=== PATIENT | female | born 1960 | race Hispanic/Latino ===

== ENCOUNTER 2017-05-18 17:06 | Emergency (ER) | payer SELFPAY ==
[2017-05-18 18:30] LABS: #Basophils 0.1 thou/uL (0.0-0.2); #Eosinphils 0.2 thou/uL (0.0-0.7); #Lymphocytes 4.7 thou/uL (1.20-3.40); #Monocytes 1.6 thou/uL (0.11-0.59); #Neutrophils 10.8 thou/uL (1.40-6.50); %Basophils 0.7 % (0.0-1.0); %Eosinophils 0.9 % (0.0-10.0); %Lymphocytes 27.1 % (21.0-51.0); %Monocytes 9.2 % (0.0-10.0); %Neutrophils 62.2 % (42.0-75.0); Hemoglobin 17.8 g/dL (12.0-16.0); Mean Corpuscular HGB CONC 33.5 g/dL (32.0-36.0); Mean Corpuscular Hemoglobin 34.1 pg (27.0-31.0); Mean Platelet Volume 7.7 fL (7.4-10.4); Platelet Count 267 thou/uL (130-400); RBC Distribution Width 12.4 % (11.5-14.5); Red Blood Cell (RBC) Count 5.22 mill/uL (4.20-5.40); White Blood Cell (WBC) Count 17.4 thou/uL (4.8-10.8)
[2017-05-18 18:55] LABS: ALT (SGPT) 14 U/L (8-55); AST (SGOT) 14 U/L (5-34); Albumin 4.3 g/dL (3.5-5.0); Alkaline Phosphatase 74 U/L (40-150); Anion Gap 16 mmol/L (10-20); BUN (Urea Nitrogen) 28 mg/dL (9.8-20.1); Bilirubin, Total 0.3 mg/dL (0.2-1.2); CK (CPK) 79 U/L (29-168); Calc. Creatinine Clearance 0 mL/min (70-130); Calcium 10.8 mg/dL (7.8-10.44); Carbon Dioxide 29 mmol/L (22-29); Chloride 99 mmol/L (98-107); Estimated GFR-MDRD 65; Globulin 3.8 g/dL (2.4-3.5); Glucose 155 mg/dL (70-105); Lipase 40 U/L (8-78); Potassium 4.5 mmol/L (3.5-5.1); Protein, Total 8.1 g/dL (6.0-8.3); Sodium 139 mmol/L (136-145)
[2017-05-18 18:59] LABS: CKMB 2.1 ng/mL (0-6.6); Troponin I Less than 0.010 ng/mL (< 0.028)
[2017-05-18 20:07] LABS: Bilirubin Negative (Negative); Blood, Urine Negative (Negative); Clarity CLEAR (Clear); Glucose, Urine (Dipstick) Negative (Negative); Leukocyte Small (Negative); Nitrite Negative (Negative); Protein, Urine (Dipstick) Negative (Neg-Trace); Specific Gravity, Urine 1.022 (1.002-1.036)
--- NOTE | 2017-05-18 20:10 | RAD ---
PA AND LATERAL VIEWS OF THE CHEST: 05/18/17 HISTORY: Chest pain. Hypertension. FINDINGS: The heart size is normal. The lungs are well expanded without focal areas of consolidation, pneumotho rax or pleural effusions. There are degenerative changes in the spine. IMPRESSION: No radiographic evidence of acute cardiopulmonary process. POS: [facility]
[2017-05-18 22:59] LABS: Troponin I Less than 0.010 ng/mL (< 0.028)
--- NOTE | 2017-06-19 21:25 | EKG ---
Test Reason : Blood Pressure : / mmHG Vent. Rate : 095 BPM Atrial Rate : 095 BPM P-R Int : 148 ms QRS Dur : 106 ms QT Int : 376 ms P-R-T Axes : 065 222 040 degrees QTc Int : 472 ms Normal sinus rhythm Possible Left atrial enlargement Inferior infarct , age undetermined Anterolateral infarct , age undetermined Abnormal ECG Confirmed by CAITLIN DUDLEY M.D. ([id number]), editor newspaper MERLY CABRALES ([id number]) on 06/19/2017 9:25:39 PM Referred By: Confirmed By:CAITLIN DUDLEY M.D.
== END 2017-05-18 23:11 | disposition home or self-care (01) ==
LOC: ERS 17:06
DX: N39.0 Urinary tract infection, site not specified (principal); R07.9 Chest pain, unspecified; E78.5 Hyperlipidemia, unspecified; I10 Essential (primary) hypertension; J45.909 Unspecified asthma, uncomplicated; D45 Polycythemia vera; F32.9 Major depressive disorder, single episode, unspecified; F17.210 Nicotine dependence, cigarettes, uncomplicated; Z79.899 Other long term (current) drug therapy
CPT/HCPCS: 71046; 80053; 81003; 81015; 82553; 83690; 83880; 84484; 85025; 87077; 87086; 87186; 87804; 93005; 96360; 96361

== ENCOUNTER 2017-06-04 12:22 | Outpatient (CLI) | payer SELFPAY | END 2017-06-04 12:23 | disposition home or self-care (01) | LOC: BICMAMMO 12:22 | PROVIDERS: ATTEND Physician Assistant Medical | DX: Z12.31 Encounter for screening mammogram for malignant neoplasm of breast (principal); R92.1 Mammographic calcification found on diagnostic imaging of breast | CPT/HCPCS: 77063; 77067 ==

== ENCOUNTER 2018-09-03 18:29 | Emergency (ER) | payer SELFPAY ==
--- NOTE | 2018-09-03 19:10 | RAD ---
PORTABLE CHEST ONE VIEW: 09/03/18 at 6:56 p.m. HISTORY: Cough, congestion, sore throat. FINDINGS: Comparison made with the exam of 11/16/17. The heart size is borderline. The lungs are expanded without focal areas of consolidation, pneumothor aces, cyrus pulmonary edema or pleural effusions. IMPRESSION: No acute process. POS: [facility]
[2018-09-03] MEDS ORDERED: Albuterol Sulfate 2.5 mg/3 ml Neb ONE (20:49)
[2018-09-03] MEDS ORDERED: predniSONE 20 MG TAB ONE (21:16)
== END 2018-09-03 22:10 | disposition home or self-care (01) ==
LOC: ERS 18:29
DX: J20.9 Acute bronchitis, unspecified (principal); E78.5 Hyperlipidemia, unspecified; I10 Essential (primary) hypertension; J44.9 Chronic obstructive pulmonary disease, unspecified; F41.9 Anxiety disorder, unspecified; F32.9 Major depressive disorder, single episode, unspecified; Z71.6 Tobacco abuse counseling; F17.210 Nicotine dependence, cigarettes, uncomplicated
CPT/HCPCS: 71045; 87804; 94640; 99406; J7512; J7611

== ENCOUNTER 2019-02-07 16:29 | Emergency (ER) | payer SELFPAY ==
[2019-02-07 17:08] LABS: #Basophils 0.1 thou/uL (0.0-0.2); #Eosinphils 0.1 thou/uL (0.0-0.7); #Monocytes 1.2 thou/uL (0.11-0.59); #Neutrophils 9.6 thou/uL (1.40-6.50); %Basophils 0.9 % (0.0-1.0); %Eosinophils 0.7 % (0.0-10.0); %Lymphocytes 21.4 % (21.0-51.0); %Monocytes 8.3 % (0.0-10.0); %Neutrophils 68.7 % (42.0-75.0); Hemoglobin 18.2 g/dL (12.0-16.0); Mean Corpuscular HGB CONC 32.7 g/dL (32.0-36.0); Mean Corpuscular Hemoglobin 32.5 pg (27.0-31.0); Mean Corpuscular Volume 99.5 fL (78.0-98.0); Mean Platelet Volume 8.3 fL (7.4-10.4); Platelet Count 176 thou/uL (130-400); RBC Distribution Width 13.1 % (11.5-14.5); White Blood Cell (WBC) Count 13.9 thou/uL (4.8-10.8)
[2019-02-07 17:24] LABS: ALT (SGPT) 13 U/L (8-55); AST (SGOT) 14 U/L (5-34); Albumin 4.5 g/dL (3.5-5.0); Alkaline Phosphatase 69 U/L (40-110); Anion Gap 14 mmol/L (10-20); BUN (Urea Nitrogen) 19 mg/dL (9.8-20.1); Bilirubin, Total 0.4 mg/dL (0.2-1.2); Calc. Creatinine Clearance 0 mL/min (70-130); Calcium 10.4 mg/dL (7.8-10.44); Carbon Dioxide 30 mmol/L (22-29); Chloride 101 mmol/L (98-107); Estimated GFR-MDRD 66; Globulin 3.6 g/dL (2.4-3.5); Glucose 141 mg/dL (70-105); Potassium 3.7 mmol/L (3.5-5.1); Protein, Total 8.1 g/dL (6.0-8.3); Sodium 141 mmol/L (136-145)
[2019-02-07] MEDS ORDERED: Clindamycin/D5W 600 mg/50 ml Premix Bag ONE (18:06)
--- NOTE | 2019-02-07 18:37 | ULT ---
ULTRASOUND DOPPLER DUPLEX VENOUS RIGHT LOWER EXTREMITY: DATE: 02/07/2019 HISTORY: 58-year-old female with right lower extremity pain, swelling, and erythema. TECHNIQUE: Grayscale, color-flow, and spectral analysis, of major veins of right lower extremity. FINDINGS: There is demonstration of blood flow with normal compressibility, of the right common femoral, profun da femoral, greater saphenous, femoral, popliteal, and posterior tibial, veins. IMPRESSION: Negative. No deep venous thrombosis of right lower extremity.
== END 2019-02-07 19:10 | disposition home or self-care (01) ==
LOC: ERS 16:29
DX: L03.115 Cellulitis of right lower limb (principal); E11.9 Type 2 diabetes mellitus without complications; E78.5 Hyperlipidemia, unspecified; E78.00 Pure hypercholesterolemia, unspecified; I10 Essential (primary) hypertension; M79.7 Fibromyalgia; J44.9 Chronic obstructive pulmonary disease, unspecified; F41.9 Anxiety disorder, unspecified; F32.9 Major depressive disorder, single episode, unspecified; F17.210 Nicotine dependence, cigarettes, uncomplicated
CPT/HCPCS: 36415; 80053; 83605; 85025; 87040; 96365; J3490

== ENCOUNTER 2019-02-17 17:01 | Inpatient (IN) | payer SELFPAY ==
[2019-02-17] MEDS ORDERED: Piperacillin/Tazobactam 4.5 GM VIAL ONE (17:40)
--- NOTE | 2019-02-17 17:52 | ULT ---
EXAM: Right lower extremity venous duplex ultrasound with color and spectral Doppler imaging: HISTORY: Right lower extremity swelling and edema and pain COMPARISON: 02/07/2019 FINDINGS: Exam performed from the groin to the ankle including the visualized greater saphenous, common femoral , superficial femoral, profunda femoral, popliteal, trifurcation, and posterior tibial veins. There is phasic flow with normal compressibility and normal augmentation at all examined levels. No evidence for intraluminal thrombus. IMPRESSION: No evidence for deep venous thrombosis.
[2019-02-17 18:17] LABS: #Basophils 0.1 thou/uL (0.0-0.2); #Eosinphils 0.2 thou/uL (0.0-0.7); #Lymphocytes 2.8 thou/uL (1.20-3.40); #Monocytes 1.1 thou/uL (0.11-0.59); #Neutrophils 8.5 thou/uL (1.40-6.50); %Eosinophils 1.5 % (0.0-10.0); %Lymphocytes 21.8 % (21.0-51.0); %Monocytes 8.8 % (0.0-10.0); %Neutrophils 66.9 % (42.0-75.0); Hemoglobin 17.8 g/dL (12.0-16.0); Mean Corpuscular Hemoglobin 34.6 pg (27.0-31.0); Mean Platelet Volume 8.2 fL (7.4-10.4); Platelet Count 170 thou/uL (130-400); RBC Distribution Width 13.3 % (11.5-14.5); Red Blood Cell (RBC) Count 5.14 mill/uL (4.20-5.40); White Blood Cell (WBC) Count 12.7 thou/uL (4.8-10.8)
[2019-02-17 18:41] LABS: ALT (SGPT) 16 U/L (8-55); AST (SGOT) 14 U/L (5-34); Albumin 4.2 g/dL (3.5-5.0); Alkaline Phosphatase 67 U/L (40-110); Anion Gap 11 mmol/L (10-20); BUN (Urea Nitrogen) 12 mg/dL (9.8-20.1); Bilirubin, Total 0.4 mg/dL (0.2-1.2); Calc. Creatinine Clearance 0 mL/min (70-130); Calcium 9.3 mg/dL (7.8-10.44); Carbon Dioxide 27 mmol/L (22-29); Chloride 103 mmol/L (98-107); Estimated GFR-MDRD 77; Globulin 2.8 g/dL (2.4-3.5); Glucose 153 mg/dL (70-105); Potassium 3.8 mmol/L (3.5-5.1); Sodium 137 mmol/L (136-145)
[2019-02-17] MEDS ORDERED: Dextrose 5% in Water 1,000 ML IV PRN (20:37)
[2019-02-17] MEDS ORDERED: Dextrose 50% Abboject 50 ML SYRINGE SLOW IVP PRN (20:37)
--- NOTE | 2019-02-17 20:46 | PDOC.EVN ---
Event Note - Event Note Event Note: [id number] HP
[2019-02-17] MEDS ORDERED: SODIUM CHLORIDE 0.9% IVPB SCH (21:00)
[2019-02-17] MEDS ORDERED: VANCOMYCIN HCL IVPB SCH (21:00)
[2019-02-17 21:13] LABS: Vancomycin, Trough Less than 1.1 ug/mL
[2019-02-17] MEDS ORDERED: Cefepime 1 GM in Sodium Chloride 0.9% 100 ML IVPB SCH (22:00)
[2019-02-17 22:17] VITALS: BMI 37.8
[2019-02-17] MEDS: Acetaminophen 325 MG TAB PO PRN (22:50)
[2019-02-17] MEDS: Vancomycin HCl 1.5 GM in Sodium Chloride 0.9% 250 ML 300 ML IVPB SCH (22:50)
[2019-02-17] MEDS: Sodium Chloride 0.9% 1,000 ML IV SCH (22:51)
--- NOTE | 2019-02-17 23:02 | HP ---
CHIEF COMPLAINT: Right leg pain and swelling. HISTORY OF PRESENT ILLNESS: Ms. Chris is a 58-year-old female with past medical history of diabetes mellitus, type 2, hypertension, GERD, among others, presents to the emergency room with pain and swelling, and redness of the right leg. The patient reports that she saw her PCP for this issue, was placed on 10 days of amoxicillin without relief. She came to the emergency room 10 days ago and was given one dose of IV antibiotics and discharged with 10 days of clindamycin that she finished without improvement. Denies fevers or chills, nausea, vomiting, or abdominal pain. Workup in the emergency room including venous Doppler of the right lower extremity is negative for deep venous thrombosis. The patient started on IV antibiotic. The patient is being admitted to the hospital for further management. PAST MEDICAL HISTORY: 1. Diabetes mellitus, type 2. 2. Polycythemia vera ? 3. Hyperlipidemia. 4. Hypertension. 5. Fibromyalgia. 6. Neuropathy. 7. COPD. PAST SURGICAL HISTORY: 1. . 2. Abdominoplasty. 3. Appendectomy. 4. Carpal tunnel surgery. 5. Cholecystectomy. 6. section. 7. Anxiety and depression. SOCIAL HISTORY: She drinks socially. She smokes tobacco about half pack a day. FAMILY HISTORY: Reviewed and noncontributory. HOME MEDICATIONS: Please see home medication reconciliation form for updated medication. ALLERGIES: ALLERGIC TO LATEX AND NATURAL RUBBER. REVIEW OF SYSTEMS: Review of 14 systems negative except what is mentioned in the history of present illness. PHYSICAL EXAMINATION: GENERAL: The patient is awake, alert, in moderate distress. HEAD AND NECK: Normocephalic, atraumatic. Neck is supple. No JVD. CHEST: Fair bilateral air entry. HEART: S1, S2. Regular. ABDOMEN: Soft, obese. Bowel sounds are present. NEUROLOGIC: Awake, alert, oriented x3. PSYCH: Normal mood. EXTREMITIES: Right leg swollen, tender, warm, and erythematous. LABORATORY DATA: Electrolytes, glucose is 153, otherwise unremarkable. CRP is elevated at 1.1. WBC count is 12.7, hemoglobin 17.8, and platelets 170. Venous Doppler of the right lower extremity negative for deep venous thrombosis. ASSESSMENT: 1. Cellulitis of the right leg, failed outpatient therapy. 2. Hypertension. 3. Diabetes mellitus, type 2. 4. Cigarette smoker. 5. Polycythemia. PLAN: 1. Admit. 2. Septic workup done in the ED. 3. IV antibiotics. 4. IV fluid hydration. 5. Reconcile home medications. 6. DVT prophylaxis, low-molecular weight heparin. 7. Expected length of stay 2 midnights or more. Job ID: [id number]
[2019-02-18] MEDS: Cefepime 1 GM in Sodium Chloride 0.9% 100 ML IVPB SCH ×2 (01:44→11:26)
[2019-02-18 05:29] LABS: #Basophils 0.1 thou/uL (0.0-0.2); #Eosinphils 0.2 thou/uL (0.0-0.7); #Lymphocytes 2.3 thou/uL (1.20-3.40); #Monocytes 1.3 thou/uL (0.11-0.59); #Neutrophils 9.7 thou/uL (1.40-6.50); %Basophils 0.7 % (0.0-1.0); %Eosinophils 1.4 % (0.0-10.0); %Lymphocytes 16.9 % (21.0-51.0); %Monocytes 9.3 % (0.0-10.0); %Neutrophils 71.6 % (42.0-75.0); Hemoglobin 17.5 g/dL (12.0-16.0); Mean Corpuscular Hemoglobin 33.9 pg (27.0-31.0); Mean Platelet Volume 8.4 fL (7.4-10.4); Platelet Count 173 thou/uL (130-400); RBC Distribution Width 13.2 % (11.5-14.5); Red Blood Cell (RBC) Count 5.17 mill/uL (4.20-5.40); White Blood Cell (WBC) Count 13.6 thou/uL (4.8-10.8)
[2019-02-18 05:50] LABS: Anion Gap 12 mmol/L (10-20); BUN (Urea Nitrogen) 12 mg/dL (9.8-20.1); Calc. Creatinine Clearance 140 mL/min (70-130); Calcium 9.1 mg/dL (7.8-10.44); Carbon Dioxide 29 mmol/L (22-29); Chloride 103 mmol/L (98-107); Estimated GFR-MDRD 77; Glucose 147 mg/dL (70-105); Potassium 3.8 mmol/L (3.5-5.1); Sodium 140 mmol/L (136-145)
[2019-02-18] MEDS ORDERED: FLU VACC QS2019-20(6MOS UP)/PF 60 MCG/0.5 ML SYRINGE IM ONE (09:00)
[2019-02-18] MEDS: Enoxaparin Sodium 40 MG/0.4 ML SYRINGE SC SCH (09:42)
[2019-02-18] MEDS: Sodium Chloride 0.9% 1,000 ML IV SCH ×3 (11:30→11:40)
[2019-02-18] MEDS: Vancomycin HCl 1.5 GM in Sodium Chloride 0.9% 250 ML 300 ML IVPB SCH ×2 (11:37→22:31)
[2019-02-18] MEDS: HumaLOG 300 UNITS/3 ML VIAL SC PRN (13:45)
[2019-02-18] MEDS ORDERED: PROVENTIL INHALER 6.7 G (200 INHALATIONS) INH PRN (14:02)
[2019-02-18] MEDS ORDERED: Morphine 2 MG/ML SYRINGE SLOW IVP PRN (14:02)
--- NOTE | 2019-02-18 14:05 | PDOC.HOSPP ---
- Subjective Encounter Date: 02/18/19 Encounter Time: 14:00 Subjective: c/o headache, pain in right leg is amb in room has sleep apnea but cant afford to have sleep studies or buy autopap - Objective Vital Signs & Weight: Vital Signs (12 hours) Temp Pulse Resp BP BP Pulse Ox 02/18/19 11:07 98.2 F 90 20 168/84 H 92 L 02/18/19 07:47 98.1 F 91 20 159/82 H 93 L 02/18/19 04:27 97.9 F 91 16 165/89 H 93 L Weight Weight 249 lb 1.957 oz I&O: 02/17/19 02/18/19 02/19/19 06:59 06:59 06:59 Intake Total 240 Balance 240 Result Diagrams: 02/18/19 05:02 02/18/19 05:02 Additional Labs: Accuchecks 02/18/19 05:41 POC Glucose 140 H Hospitalist ROS - Medication Medications: Active Medications Generic Name Dose Route Start Last Admin Trade Name Radq PRN Reason Stop Dose Admin Acetaminophen 650 mg 02/17/19 19:40 02/17/19 22:50 Tylenol PO 650 mg Q4H PRN Administration Headache/Fever/Mild Pain (1-3) Enoxaparin Sodium 40 mg 02/18/19 09:00 02/18/19 09:42 Lovenox SC 40 mg 0900 JARET Administration Sodium Chloride 1,000 mls @ 75 mls/hr 02/17/19 19:45 02/18/19 11:40 Normal Saline 0.9% IV Not Given .[id number] JARET Vancomycin HCl 1.5 gm/ Sodium 300 mls @ 200 mls/hr 02/17/19 23:00 02/18/19 11 :37 Chloride IVPB 300 mls 1100,2300 JARET Administration Cefepime HCl 1 gm/ Sodium 100 mls @ 200 mls/hr 02/17/19 23:59 02/18/19 11:26 Chloride IVPB 100 mls 1200,2359 JARET Administration Insulin Human Lispro 0 units 02/17/19 20:37 02/18/19 13:45 Humalog SC 2 unit .MILD SLIDING SCALE PRN Administration Mild Correctional Scale - Exam General Appearance: awake alert Eye: PERRL, anicteric sclera ENT: no oropharyngeal lesions, moist mucosa Neck: supple, no JVD Heart: RRR, no murmur Respiratory: no wheezes, no rales Gastrointestinal: soft, non-tender, non-distended, normal bowel sounds Extremities: 1+ LE edema Extremities - other findings: right leg erythema++, tenderness++ Neurological: cranial nerve grossly intact, no focal deficits Psychiatric: normal affect, A&O x 3 Hosp A/P (1) Cellulitis of right leg Code(s): L03.115 - CELLULITIS OF RIGHT LOWER LIMB Status: Acute (2) HTN (hypertension) Code(s): I10 - ESSENTIAL (PRIMARY) HYPERTENSION Status: Chronic Qualifiers: Hypertension type: essential hypertension Qualified Code(s): I10 - Essential (primary) hypertension (3) DM type 2 (diabetes mellitus, type 2) Status: Chronic Qualifiers: Diabetes mellitus mcfp insulin use: with long filler cigar roller machine use (4) Obesity (BMI 30-39.9) Code(s): E66.9 - OBESITY, UNSPECIFIED Status: Chronic (5) Tobacco abuse Code(s): Z72.0 - TOBACCO USE Status: Chronic (6) NEGRITA (obstructive sleep apnea) Code(s): G47.33 - OBSTRUCTIVE SLEEP APNEA (ADULT) (PEDIATRIC) Status: Suspected - Plan on vanc and ceftriaxone, morphine and ultram/motrin prn for pain continue current meds as above to ambulate as tolerated wbc around 13k no dvt in right LE
[2019-02-18] MEDS: metFORMIN 500 MG TAB PO SCH (18:37)
[2019-02-18] MEDS: Benzonatate 100 MG CAP PO SCH ×2 (18:37→20:24)
[2019-02-18] MEDS: Nortriptyline HCl 25 MG CAP PO SCH (20:25)
[2019-02-19] MEDS: Cefepime 1 GM in Sodium Chloride 0.9% 100 ML IVPB SCH ×3 (01:04→23:10)
[2019-02-19] MEDS: metFORMIN 500 MG TAB PO SCH ×2 (08:41→17:58)
[2019-02-19] MEDS: Benzonatate 100 MG CAP PO SCH ×3 (08:41→20:31)
[2019-02-19] MEDS: Loratadine 10 MG TAB PO SCH (08:42)
[2019-02-19] MEDS: Lisinopril 20 MG TAB PO SCH (08:42)
[2019-02-19] MEDS: Enoxaparin Sodium 40 MG/0.4 ML SYRINGE SC SCH (08:43)
[2019-02-19 10:18] LABS: Vancomycin, Trough 10.6 ug/mL
[2019-02-19] MEDS: Nicotine 21 MG PATCH TOP SCH (11:16)
[2019-02-19] MEDS: HumaLOG 300 UNITS/3 ML VIAL SC PRN (11:19)
[2019-02-19] MEDS: Vancomycin HCl 1.25 GM in Sodium Chloride 0.9% 250 ML 250 ML IVPB SCH ×2 (11:36→18:00)
--- NOTE | 2019-02-19 11:39 | PDOC.HOSPP ---
- Subjective Encounter Date: 02/19/19 Encounter Time: 10:00 Subjective: pain is better in her right leg is amb in room and hallway no sob, requesting nicotine patch - Objective Vital Signs & Weight: Vital Signs (12 hours) Temp Pulse Resp BP BP Pulse Ox 02/19/19 11:11 98.3 F 84 18 148/111 H 93 L 02/19/19 08:42 171/84 H 02/19/19 08:01 98.1 F 98 18 171/84 H 95 02/19/19 03:18 98.1 F 88 16 168/91 H 91 L Weight Weight 249 lb 1.957 oz I&O: 02/18/19 02/19/19 02/20/19 06:59 06:59 06:59 Intake Total 240 3380 Balance 240 3380 Result Diagrams: 02/18/19 05:02 02/18/19 05:02 Additional Labs: Accuchecks 02/19/19 02/18/19 02/18/19 05:57 22:06 15:40 POC Glucose 134 H 144 H 151 H 02/18/19 11:13 POC Glucose 164 H Hospitalist ROS - Medication Medications: Active Medications Generic Name Dose Route Start Last Admin Trade Name Freq PRN Reason Stop Dose Admin Acetaminophen 650 mg 02/17/19 19:40 02/17/19 22:50 Tylenol PO 650 mg Q4H PRN Administration Headache/Fever/Mild Pain (1-3) Benzonatate 100 mg 02/18/19 15:00 02/19/19 08:41 Tessalon PO 100 mg TID JARET Administration Enoxaparin Sodium 40 mg 02/18/19 09:00 02/19/19 08:43 Lovenox SC 40 mg 0900 JARET Administration Sodium Chloride 1,000 mls @ 75 mls/hr 02/17/19 19:45 02/18/19 11:40 Normal Saline 0.9% IV Not Given .[id number] JARET Cefepime HCl 1 gm/ Sodium 100 mls @ 200 mls/hr 02/17/19 23:59 02/19/19 01:04 Chloride IVPB 100 mls 1200,2359 JARET Administration Vancomycin HCl 1.25 gm/ Sodium 250 mls @ 166.667 mls/hr 02/19/19 11:00 11:36 Chloride IVPB 250 mls 0300,1100,1900 JARET Administration Insulin Human Lispro 0 units 02/17/19 20:37 02/19/19 11:19 Humalog SC 2 unit .MILD SLIDING SCALE PRN Administration Mild Correctional Scale Lisinopril 20 mg 02/19/19 09:00 02/19/19 08:42 Zestril PO 20 mg DAILY JARET Administration Loratadine 10 mg 02/19/19 09:00 02/19/19 08:42 Claritin PO 10 mg DAILY JARET Administration Metformin HCl 500 mg 02/18/19 17:00 02/19/19 08:41 Glucophage PO 500 mg BID-WM JARET Administration Morphine Sulfate 2 mg 02/18/19 14:02 02/18/19 18:50 Morphine SLOW IVP 2 mg Q4H PRN Administration Pain Nicotine 21 mg 02/19/19 10:00 02/19/19 11:16 Nicoderm Patch TOP 21 mg Q24HR JARET Administration Nortriptyline HCl 150 mg 02/18/19 21:00 02/18/19 20:25 Pamelor PO 150 mg HS JARET Administration Pantoprazole Sodium 40 mg 02/19/19 09:00 02/19/19 08:41 Protonix PO 40 mg DAILY JARET Administration Sodium Chloride 10 ml 02/19/19 09:00 02/19/19 11:37 Flush - Normal Saline IVF Not Given Q12HR JARET - Exam General Appearance: NAD, awake alert Eye: PERRL, anicteric sclera ENT: no oropharyngeal lesions, moist mucosa Neck: supple, no JVD Heart: RRR, no murmur Respiratory: no wheezes, no rales, rhonchi Gastrointestinal: soft, non-tender, non-distended, normal bowel sounds Extremities - other findings: right leg erythema and edema is slowly receding Neurological: cranial nerve grossly intact, no focal deficits Psychiatric: normal affect, A&O x 3 Hosp A/P (1) Cellulitis of right leg Code(s): L03.115 - CELLULITIS OF RIGHT LOWER LIMB Status: Acute (2) HTN (hypertension) Code(s): I10 - ESSENTIAL (PRIMARY) HYPERTENSION Status: Chronic Qualifiers: Hypertension type: essential hypertension Qualified Code(s): I10 - Essential (primary) hypertension (3) DM type 2 (diabetes mellitus, type 2) Status: Chronic Qualifiers: Diabetes mellitus terminal makeup operator insulin use: with terminal makeup operator use (4) Obesity (BMI 30-39.9) Code(s): E66.9 - OBESITY, UNSPECIFIED Status: Chronic (5) Tobacco abuse Code(s): Z72.0 - TOBACCO USE Status: Chronic (6) NEGRITA (obstructive sleep apnea) Code(s): G47.33 - OBSTRUCTIVE SLEEP APNEA (ADULT) (PEDIATRIC) Status: Suspected - Plan on vanc and ceftriaxone, morphine and ultram/motrin prn for pain continue current meds as above to ambulate as tolerated, [place] ponce no dvt in right LE dc plan in am if stable
[2019-02-19] MEDS: Sodium Chloride 0.9% 1,000 ML IV SCH ×2 (15:17→23:11)
[2019-02-19] MEDS: Nortriptyline HCl 25 MG CAP PO SCH (20:31)
[2019-02-20] MEDS: Vancomycin HCl 1.25 GM in Sodium Chloride 0.9% 250 ML 250 ML IVPB SCH ×2 (03:32→10:46)
[2019-02-20] MEDS: Enoxaparin Sodium 40 MG/0.4 ML SYRINGE SC SCH (08:28)
[2019-02-20] MEDS: Loratadine 10 MG TAB PO SCH (08:29)
[2019-02-20] MEDS: Lisinopril 20 MG TAB PO SCH (08:29)
[2019-02-20] MEDS: metFORMIN 500 MG TAB PO SCH (08:29)
[2019-02-20] MEDS: Benzonatate 100 MG CAP PO SCH (08:29)
[2019-02-20] MEDS: Acetaminophen 325 MG TAB PO PRN (09:51)
[2019-02-20] MEDS: Nicotine 21 MG PATCH TOP SCH (09:52)
[2019-02-20] MEDS: Cefepime 1 GM in Sodium Chloride 0.9% 100 ML IVPB SCH (11:55)
[2019-02-20] MEDS: Sodium Chloride 0.9% 1,000 ML IV SCH (11:55)
[2019-02-20 12:48] VITALS: BP 157/81; TEMP 98.4
--- NOTE | 2019-02-20 17:24 | DIS ---
DATE OF ADMISSION: 02/17/2019 DATE OF DISCHARGE: 02/20/2019 DISCHARGE DISPOSITION: Home. PRIMARY DISCHARGE DIAGNOSIS: Right lower extremity cellulitis. SECONDARY DISCHARGE DIAGNOSES: Hypertension; diabetes mellitus, type 2; suspected obstructive sleep apnea; tobacco abuse; obesity; likely underlying chronic obstructive pulmonary disease. PROCEDURES DONE DURING HOSPITALIZATION: The patient has had ultrasound venous Doppler of right lower extremity done, which showed no evidence of DVT. H and H 17 and 53, platelet count 173, white count of 13 on the 12th. CRP 1.10. DISCHARGE MEDICATIONS: 1. Keflex 500 mg p.o. 4 times daily for 10 days. 2. Lasix 20 mg p.o. daily. 3. Albuterol inhaler q.6 hourly p.r.n. 4. Omeprazole 40 mg p.o. daily. 5. Pamelor 150 mg p.o. at bedtime. 6. Metformin 500 mg p.o. twice daily. 7. Lisinopril 20 mg daily. 8. Cetirizine 10 mg daily. 9. Tessalon Perles 100 mg p.o. 3 times daily p.r.n. ALLERGIES: LATEX. DISCHARGE PLAN: The patient to follow up with primary care physician at [facility] in 1 week. BRIEF COURSE DURING HOSPITALIZATION: The patient initially got admitted on the , with complaints of right lower extremity swelling and pain. She was diagnosed with right lower extremity cellulitis. The patient in fact had taken 10 days of clindamycin and 10 days of amoxicillin, both of which did not relieve her cellulitis in the past. She was placed on broad-spectrum IV antibiotics. The patient's right lower extremity erythema and tenderness are resolving. She still has edema in the leg. She is advised to wear VIKASH hose for the leg and continue Keflex for another 10 days. If the patient's erythema were to come back, the patient needs to come back to the emergency room. She is advised to keep her right lower extremity elevated when she is upright or when she is sitting especially. She is otherwise hemodynamically stable. Please note, I have seen and examined the patient on the day of discharge. Job ID: [id number]
--- NOTE | 2019-02-22 07:20 | PQF ---
NATHANIEL BIRCH MD [id number] CLINICAL DOCUMENTATION CLARIFICATION FORM: POST DISCHARGE Addendum to original discharge summary date: ____ Late entry note date: __ DATE: 02-22-19 ATTN:Nathaniel Vick Please exercise your independent, professional judgment in responding to the clarification form. Clinical indicators are provided on the bottom of this form for your review Can you please further specify the relationship of Cellulitis to DM? Please check appropriate box(s): [ ] Cellulitis due to Diabetes [ ] Cellulitis not due to Diabetes [ ] Other diagnosis please specify: [ x ] Unable to determine For continuity of documentation, please document condition throughout progress notes and discharge summary. Thank You. CLINICAL INDICATORS: HP 02/[address] Rdz chief complaint: right leg pain and swelling HP 02/[address] Rdz placed on 10 days amoxicillin without relief HP 02/[address] Rdz Cellulitis right leg failed OP therapy PN 02/[address] Salcido WBC around 13 k DS 02/[address] Salcido Right lower extremity cellulitis RISKS: HP 02/17 Dr. Rdz - DM type 2 HP 02/17 Dr. Rdz- HTN HP 02/17 Dr. Rdz- Neuropathy HP 02/17 Dr. Rdz- Fibromyalgia TREATMENT: HP= IV fluid resuscitation DS- ultrasound doppler JUL 17- Humalog JUL 17- Vancomycin IV JUL 17- Maxipime IV (This form is maintained as a part of the permanent medical record) 2014 [employer]. All Rights Reserved [email or web address] [not provided] MTDD
== END 2019-02-20 13:40 | disposition home or self-care (01) | DRG 603 ==
LOC: ERS 17:01 → SURG A 19:00
PROVIDERS: ADMIT Internal Medicine; ATTEND Internal Medicine
DX: L03.115 Cellulitis of right lower limb (principal); E78.5 Hyperlipidemia, unspecified; E78.00 Pure hypercholesterolemia, unspecified; M79.7 Fibromyalgia; J44.9 Chronic obstructive pulmonary disease, unspecified; E11.40 Type 2 diabetes mellitus with diabetic neuropathy, unspecified; F17.210 Nicotine dependence, cigarettes, uncomplicated; I10 Essential (primary) hypertension; K21.9 Gastro-esophageal reflux disease without esophagitis; F41.9 Anxiety disorder, unspecified; F32.9 Major depressive disorder, single episode, unspecified; E66.9 Obesity, unspecified; G47.33 Obstructive sleep apnea (adult) (pediatric); D45 Polycythemia vera; Z91.040 Latex allergy status; Z90.49 Acquired absence of other specified parts of digestive tract; Z79.899 Other long term (current) drug therapy; Z79.84 Long term (current) use of oral hypoglycemic drugs; Z68.37 Body mass index [BMI] 37.0-37.9, adult
CPT/HCPCS: 36415; 36416; 80048; 80053; 80202; 85025; 85652; 86140; 90471; 90686; 96365; G0008; J0692; J1650; J2270; J2543; J3370; J3490; J7050

== ENCOUNTER 2019-10-27 14:21 | Inpatient (IN) | payer OTHER, SELFPAY ==
[2019-10-27 14:55] LABS: #Basophils 0.1 thou/uL (0.0-0.2); #Eosinphils 0.1 thou/uL (0.0-0.7); #Lymphocytes 1.9 thou/uL (1.20-3.40); #Neutrophils 8.8 thou/uL (1.40-6.50); %Eosinophils 1.1 % (0.0-10.0); %Monocytes 8.6 % (0.0-10.0); %Neutrophils 73.3 % (42.0-75.0); Mean Corpuscular HGB CONC 32.9 g/dL (32.0-36.0); Mean Platelet Volume 8.6 fL (7.4-10.4); Platelet Count 180 thou/uL (130-400); RBC Distribution Width 13.9 % (11.5-14.5); Red Blood Cell (RBC) Count 5.59 mill/uL (4.20-5.40)
[2019-10-27 15:16] LABS: ALT (SGPT) 12 U/L (8-55); AST (SGOT) 14 U/L (5-34); Alkaline Phosphatase 68 U/L (40-110); Anion Gap 13 mmol/L (10-20); BUN (Urea Nitrogen) 14 mg/dL (9.8-20.1); Bilirubin, Total 0.4 mg/dL (0.2-1.2); Calc. Creatinine Clearance 0 mL/min (70-130); Calcium 9.4 mg/dL (7.8-10.44); Carbon Dioxide 34 mmol/L (22-29); Chloride 101 mmol/L (98-107); Estimated GFR-MDRD 72; Globulin 3.3 g/dL (2.4-3.5); Glucose 156 mg/dL (70-105); Potassium 3.5 mmol/L (3.5-5.1); Protein, Total 7.3 g/dL (6.0-8.3); Sodium 144 mmol/L (136-145)
[2019-10-27] MEDS ORDERED: methylPREDNISolone Sod Succ/PF 125 MG/2 ML VIAL ONE (15:46)
[2019-10-27] MEDS ORDERED: Aspirin 325 MG TAB ONE (15:46)
[2019-10-27] MEDS ORDERED: Nitroglycerin 2% Ointment 1 INCH/1 GM Packet ONE (15:46)
[2019-10-27] MEDS ORDERED: Furosemide 40 MG/4 ML VIAL ONE (15:46)
[2019-10-27 15:47] LABS: Actual Bicarbonate (HCO3a) 31.8 mEq/L (22-28); Analyzer IN Cardio ER; Base Excess (BEa) 3.6 mEq/L (-2.0 to +3.0); CO2 Tension 59.8 mmHg (35.0-45.0); Calcium, Ionized (arterial) 1.18 mmol/L (1.12-1.30); Carboxyhemoglobin (COHb) 7.5 gm% (0.0-3.0); Hemoglobin (Hb) 19.7 g/dL (12.0-16.0); O2 Tension (PaO2), arterial 80.7 mmHg (> 80.0); Potassium - ABG Lab 3.59 mmol/L (3.70-5.30); pH, Arterial 7.34 (7.35-7.45)
[2019-10-27 15:49] LABS: Puncture Site LRA
--- NOTE | 2019-10-27 16:12 | RAD ---
EXAM: Single view of the chest HISTORY: Shortness of breath COMPARISON: 09/03/2018 FINDINGS: Single view of the chest shows an enlarged cardiomediastinal silhouette. Opacity seen in t he lung bases which may represent atelectasis or infiltrates. The bones are unremarkable. IMPRESSION: Bibasilar atelectasis versus infiltrates.
[2019-10-27 16:48] LABS: Bilirubin Negative (Negative); Blood, Urine Negative (Negative); Clarity Clear (Clear); Glucose, Urine (Dipstick) Normal (Negative); Leukocyte Negative Leu/uL (Negative); Nitrite Negative (Negative); Protein, Urine (Dipstick) 50 mg/dL (Neg-Trace); RBC/HPF 0-3 HPF (0-3); Squamous Epithelial None Seen HPF (0-3); Urobilinogen Normal mg/dL (Less than 2); WBC/HPF 0-3 HPF (0-3)
[2019-10-27 16:51] LABS: Bacteria/HPF 1+ HPF (None Seen)
[2019-10-27] MEDS ORDERED: cefTRIAXone\\ROCEPHIN 2 GM VIAL ONE (16:57)
[2019-10-27] MEDS ORDERED: Azithromycin 500 MG VIAL ONE (17:47)
[2019-10-27 17:57] LABS: CRP (Inflammatory) 1.25 mg/dL (= or < 0.5); Magnesium 1.9 mg/dL (1.6-2.6)
[2019-10-27 18:46] LABS: Troponin I 0.066 ng/mL (< 0.028)
[2019-10-27] MEDS ORDERED: Diabetic Tussin 200 MG/10 ML UDCUP PO PRN (18:53)
[2019-10-27] MEDS ORDERED: hydrALAZINE 20 MG/ML VIAL SLOW IVP PRN (18:53)
[2019-10-27] MEDS ORDERED: Temazepam 15 MG CAP PO PRN (18:53)
[2019-10-27] MEDS ORDERED: Dextrose 50% Abboject 50 ML SYRINGE SLOW IVP PRN (18:59)
[2019-10-27] MEDS ORDERED: Dextrose 5% in Water 1,000 ML IV PRN (18:59)
--- NOTE | 2019-10-27 20:18 | HP ---
CHIEF COMPLAINT: Shortness of breath, anasarca, hypertension. PCP: [facility]. HISTORY OF PRESENT ILLNESS: Ms. Chris is a 59-year-old female, who reports to the emergency room today for worsening of shortness of breath. She reports that it is significantly worse and progressively so in the last several days, but has noticed that her breathing has been progressively getting worse over the last couple of months. Reports bilateral lower leg edema started in her feet and has progressed all way up to her groin. She reports that she has been admitted in the past for cellulitis in her lower extremity. She reports that she has past medical history pertinent for her prediabetes, polycythemia vera, hyperlipidemia, hypertension, fibromyalgia, neuropathy in both of her hands and feet, and COPD. She reports that she goes to [facility] for as primary care, but does not get along with her providers at the clinic and so she has not gone in a while and has not been taking her medication. She is supposed to be taking medicine for blood pressure, metformin and furosemide, but she has not been taking any. In the emergency room, she had a chest x-ray which showed some opacity in the lower lung bases which may represent atelectasis or infiltrates. She was initially hypoxic in the 80s at room air and with 3 L of O2 via a nasal cannula, she is at 95% currently. She is sitting up though and has some mild accessory muscle use. Two troponins have been drawn, which are in the indeterminate range. CRP is 1.25, BNP is 255, carbon dioxide 34, calcium 156. White blood cell count 12, hemoglobin 19, hematocrit 57. She was given antibiotics for the potential infiltrates Solu-Medrol 125, some Nitro-Bid paste was placed on her chest for hypertension, given 40 mg of Lasix, aspirin and DuoNeb, and her symptoms improved. She is going to be admitted to the Telemetry unit. She is at risk for COVID-19 and will be screened. REVIEW OF SYSTEMS: In general, she is awake. She reports increasing shortness of breath. Denies chest pain. Denies abdominal pain. Denies any nausea. Does report some anasarca, worsening gradual edema from her toes all the way up to her groin. All systems reviewed and negative unless mentioned above or in HPI. PAST MEDICAL HISTORY: Diabetes type 2 versus prediabetes, polycythemia vera, hyperlipidemia, hypertension, fibromyalgia, neuropathy, COPD. PAST SURGICAL HISTORY: Abdominoplasty, appendectomy, carpal tunnel surgery, cholecystectomy, section. SOCIAL HISTORY: She is a smoker. She smokes about pack and half a day and drinks socially. Denies any drug use. FAMILY HISTORY: Pertinent for congestive heart failure, hypertension, cancer. MEDICATIONS: Home medication list. She is supposed to be taking; 1. Lisinopril 20 mg p.o. daily. 2. Metformin 500 mg p.o. b.i.d. 3. Zyrtec 10 mg p.o. daily. 4. Furosemide 20 mg p.o. daily. 5. Hydroxyzine 25 mg p.o. p.r.n. anxiety. 6. Tessalon Perles 100 mg p.o. t.i.d. as needed. 7. Prilosec 40 mg p.o. daily. She has not been taking her medications for the last several months. ALLERGIES: KNOWN ALLERGIES TO LATEX AND RUBBER. PHYSICAL EXAMINATION: VITAL SIGNS: Blood pressure 165/102, pulse is 87, respiratory rate is 23, temp is 98.7, pO2 sats are 95% on 3 L of O2 via nasal cannula. GENERAL: She is awake, alert, in moderate respiratory distress. HEENT: Eyes, PERRL. Extraocular muscles are intact. Mouth, mucous membranes are moist. NECK: Supple. No JVD is noted. CHEST: She has decreased breath sounds in the bases, intermittent scattered wheezing. Chest expansion is equal. HEART: S1 and S2. No murmur is auscultated. ABDOMEN: Soft and nontender. Bowel sounds are present. EXTREMITIES: She has bilateral edema from her toes to her groin, pulses normal. Upper and lower extremities pitting edema. PSYCH: She has a normal affect. NEUROLOGIC: She is awake and oriented x3. No focal deficits are noted. DIAGNOSTIC DATA: EKG in the emergency room with normal sinus rhythm, rate of 90. She does have a right bundle branch block, T-wave abnormality in inferior lateral regions, T segments are normal. The EKG is nonspecific. PLAN/ASSESSMENT: 1. Chronic obstructive pulmonary disease exacerbation, screening for COVID. She is given a DuoNeb in the emergency room, albuterol inhaler while the COVID is pending and then convert to DuoNebs q.4 hours once that is deemed negative, Add Solu-Medrol 40 mg daily. 2. Anasarca. We will get an echocardiogram, the last one in 2015 showed an EF of 60% to 65% with some grade 1 diastolic dysfunction. We will give some Lasix 40 mg IV b.i.d. Strict I's and O's. Fluid restriction 1500 mL per day. 3. History of hypertension. We will restart her lisinopril 10 mg p.o. daily and can titrate that up as needed. 4. Prediabetes versus diabetes type 2. For now, we will do Accu-Cheks a.c. and bedtime with sliding scale as needed for coverage. A1C will be checked 5. Bilateral infiltrates treating for possible pneumonia starting azithromycin and Rocephin. 6. Gastrointestinal and deep venous thrombosis prophylaxis. 7. Smoking cessation counseling. 8. Case discussed with Dr. Rivas, who agrees with plan. 9. Hospital course dependent on clinical findings. Job ID: [id number] MTDD
[2019-10-27 23:18] VITALS: BMI 44.1
[2019-10-28 00:37] LABS: Actual Bicarbonate (HCO3a) 34.1 mEq/L (22-28); Base Excess (BEa) 1.8 mEq/L (-2.0 to +3.0); Hemoglobin (Hb) 19.6 g/dL (12.0-16.0)
[2019-10-28 00:42] LABS: CO2 Tension 86.7 mmHg (35.0-45.0); pH, Arterial 7.21 (7.35-7.45)
[2019-10-28 00:43] LABS: O2 Tension (PaO2), arterial 46.8 mmHg (> 80.0)
[2019-10-28 00:44] LABS: Puncture Site RR
[2019-10-28 00:46] LABS: ALV-art Gradient 101.505 (0-20)
--- NOTE | 2019-10-28 01:26 | PDOC.EVN ---
Event Note - Event Note Event Note: Notified by SAVANNAH Simon that patient has severe sleep apnea and was hypoxic (70's) on the 2-3L NC she was admitted with earlier today. An order for a CPAP was placed but RT concerned when they arrived so requested an order for a repeat ABG. ABG results worsening from the one done in the ED so Dr. Jain suggested IMCU and bipap to see if she improves. Orders placed. We will repeat an ABG in a few hours and decide next steps. Orders already placed for ECHO, lasix, neb treatments, steroids and antibiotics. Advanced directives discussed in detail on admission and patient is a full code. Her son is her surrogate decision maker.
[2019-10-28 02:53] LABS: Actual Bicarbonate (HCO3a) 37.2 mEq/L (22-28); Base Excess (BEa) 5.9 mEq/L (-2.0 to +3.0); Carboxyhemoglobin (COHb) 5.3 gm% (0.0-3.0); Hemoglobin (Hb) 18.5 g/dL (12.0-16.0); O2 Tension (PaO2), arterial 95.8 mmHg (> 80.0); pH, Arterial 7.27 (7.35-7.45)
[2019-10-28 02:56] LABS: Puncture Site RR
[2019-10-28 04:04] LABS: #Lymphocytes 0.7 thou/uL (1.20-3.40); #Monocytes 0.7 thou/uL (0.11-0.59); %Basophils 0.1 % (0.0-1.0); %Eosinophils 0.2 % (0.0-10.0); %Lymphocytes 4.9 % (21.0-51.0); %Monocytes 4.9 % (0.0-10.0); Mean Corpuscular HGB CONC 32.4 g/dL (32.0-36.0); Mean Corpuscular Hemoglobin 34.1 pg (27.0-31.0); Mean Platelet Volume 8.5 fL (7.4-10.4); Platelet Count 169 thou/uL (130-400); RBC Distribution Width 13.9 % (11.5-14.5); Red Blood Cell (RBC) Count 5.28 mill/uL (4.20-5.40); White Blood Cell (WBC) Count 13.3 thou/uL (4.8-10.8)
[2019-10-28 04:16] LABS: Hemoglobin A1c Greater than 14.0 % (4.0-6.0)
[2019-10-28 04:20] LABS: ALT (SGPT) 11 U/L (8-55); AST (SGOT) 12 U/L (5-34); Alkaline Phosphatase 60 U/L (40-110); Anion Gap 11 mmol/L (10-20); BUN (Urea Nitrogen) 18 mg/dL (9.8-20.1); Bilirubin, Total 0.4 mg/dL (0.2-1.2); Calc. Creatinine Clearance 128 mL/min (70-130); Calcium 9.2 mg/dL (7.8-10.44); Carbon Dioxide 36 mmol/L (22-29); Chloride 98 mmol/L (98-107); Cholesterol 179 mg/dl (< 200 Desired); Estimated GFR-MDRD 61; Globulin 3.3 g/dL (2.4-3.5); Glucose 296 mg/dL (70-105); HDL Cholesterol 45 mg/dL (>60 Neg Risk); LDL Cholesterol, Calculated 113 mg/dL; Potassium 4.2 mmol/L (3.5-5.1); Protein, Total 7.3 g/dL (6.0-8.3); Sodium 141 mmol/L (136-145); Triglycerides 107 mg/dL (Less than 150)
[2019-10-28] MEDS: Furosemide 40 MG/4 ML VIAL SLOW IVP SCH ×2 (06:29→15:26)
[2019-10-28] MEDS ORDERED: Lisinopril 10 MG TAB PO SCH (09:00)
[2019-10-28] MEDS ORDERED: Furosemide 40 MG/4 ML VIAL SLOW IVP SCH (09:00)
[2019-10-28] MEDS: Nicotine 21 MG PATCH TD SCH (09:35)
[2019-10-28] MEDS: methylPREDNISolone Sod Succ 40 MG VIAL IVP SCH (09:35)
[2019-10-28] MEDS: Enoxaparin Sodium 40 MG/0.4 ML SYRINGE SC SCH (09:35)
[2019-10-28] MEDS: Aspirin 325 mg Enteric Coated Tablet PO SCH (09:36)
[2019-10-28] MEDS: Albuterol 200 PUFF (6.7GM INHALER) INH SCH ×2 (10:30→11:29)
[2019-10-28 11:38] LABS: SARS-CoV-2 MS2 Positive; SARS-CoV-2 N Gene Negative; SARS-CoV-2 S Gene Negative; SARS-CoV-2 orf1ab Negative
--- NOTE | 2019-10-28 13:38 | PDOC.HOSPP ---
- Subjective Encounter Date: 10/28/19 Encounter Time: 13:30 Subjective: f/u for COPD exacerbation now ruled out for COVID-19. Remains on O2 @ 4l/min NC with Rocephin/Zithromax/Solumedrol. - Objective Vital Signs & Weight: Vital Signs (12 hours) Temp Pulse Resp Pulse Ox 10/28/19 12:00 98.7 F 10/28/19 08:00 98.9 F 10/28/19 07:47 87 14 100 10/28/19 07:33 100 10/28/19 04:00 98.5 F 10/28/19 01:44 88 25 H 96 Weight Weight 281 lb 8 oz Most Recent Monitor Data Heart Rate from ECG 82 NIBP 152/84 NIBP BP-Mean 106 Respiration from ECG 21 SpO2 97 Result Diagrams: 10/28/19 03:39 10/28/19 03:39 Additional Labs: Accuchecks 10/28/19 10/28/19 10/27/19 10:16 06:39 20:11 POC Glucose 156 H 198 H 235 H Microbiology 10/27/19 16:31 Urine voided Urine Culture - Preliminary NO GROWTH AT 12 HOURS 10/27/19 15:00 Venous blood - Right Hand Blood Culture - Preliminary Specimen has been received and culture in progress. No Growth to date. 10/27/19 14:40 Venous blood - Right Hand Blood Culture - Preliminary Specimen has been received and culture in progress. No Growth to date. Laboratory Tests 05/18/17 10/27/19 10/27/19 18:20 14:40 14:43 WBC 12.0 H Neutrophils % 73.3 Hemoglobin A1c B-Natriuretic Peptide 13.8 Troponin I 0.071 H TSH 3rd Generation COVID-19 PCR 10/27/19 10/27/19 10/27/19 14:43 18:13 19:40 WBC Neutrophils % Hemoglobin A1c B-Natriuretic Peptide 255.5 H Troponin I 0.066 H TSH 3rd Generation COVID-19 PCR Not Detected 10/27/19 10/28/19 10/28/19 21:03 03:39 03:39 WBC Neutrophils % 90.0 H Hemoglobin A1c Greater than 14.0 H B-Natriuretic Peptide Troponin I 0.060 H TSH 3rd Generation COVID-19 PCR 10/28/19 03:40 WBC Neutrophils % Hemoglobin A1c B-Natriuretic Peptide Troponin I TSH 3rd Generation 0.3485 L COVID-19 PCR Radiology Reviewed by me: Yes (PCXR - bibasilar infiltrates vs atelectasis) EKG Reviewed by me: Yes (Tele - SR) Hospitalist ROS - Medication Medications: Active Medications Generic Name Dose Route Start Last Admin Trade Name Radq PRN Reason Stop Dose Admin Aspirin 325 mg 10/28/19 09:00 10/28/19 09:36 Ecotrin PO 325 mg DAILY JARET Administration Enoxaparin Sodium 40 mg 10/28/19 09:00 10/28/19 09:35 Lovenox SC 40 mg 0900 JARET Administration Furosemide 40 mg 10/28/19 06:00 10/28/19 06:29 Lasix SLOW IVP 40 mg 0600,1400 JARET Administration Lisinopril 10 mg 10/28/19 09:00 10/28/19 09:36 Zestril PO 10 mg DAILY JARET Administration Methylprednisolone Sodium Succinate 40 mg 10/28/19 09:00 10/28/19 09:35 Solu-Medrol IVP 40 mg DAILY JARET Administration Nicotine 21 mg 10/28/19 09:00 10/28/19 09:35 Nicoderm Patch TD 21 mg DAILY JARET Administration Pantoprazole Sodium 40 mg 10/28/19 09:00 10/28/19 09:36 Protonix PO 40 mg DAILY JARET Administration - Exam General Appearance: NAD, awake alert Eye: PERRL, anicteric sclera ENT: normocephalic atraumatic, no oropharyngeal lesions Neck: supple, symmetric, no JVD, no thyromegaly, no lymphadenopathy Heart: RRR, no murmur, no gallops, no rubs, normal peripheral pulses Heart - other findings: S1, S2 Respiratory: tachypneic Respiratory - other findings: diminished bilat, exp wheezes Gastrointestinal: soft, non-tender, non-distended, normal bowel sounds, no palpable masses Gastrointestinal - other findings: obese Extremities: no cyanosis, 2+ LE edema Skin: normal turgor, no lesions Neurological: cranial nerve grossly intact, no new deficit Musculoskeletal: normal tone, generalized weakness Psychiatric: normal affect, A&O x 3 Hosp A/P (1) Acute respiratory failure with hypoxia Code(s): J96.01 - ACUTE RESPIRATORY FAILURE WITH HYPOXIA Status: Acute Plan: Secondary to #1, continue mgmt as outlined below (2) COPD exacerbation Code(s): J44.1 - CHRONIC OBSTRUCTIVE PULMONARY DISEASE W (ACUTE) EXACERBATION Status: Acute Plan: Continue IV Rocephin/Zithromax/Solumedrol/Duonebs/O2 (3) DM type 2 (diabetes mellitus, type 2) Status: Chronic Qualifiers: Diabetes mellitus halfway insulin use: with halfway use Plan: Uncontrolled, start Metformin/Glipizide, ISS, ADA (4) HTN (hypertension) Code(s): I10 - ESSENTIAL (PRIMARY) HYPERTENSION Status: Chronic Qualifiers: Hypertension type: essential hypertension Qualified Code(s): I10 - Essential (primary) hypertension Plan: Resume home Lisinopril, serial BP monitoring (5) Tobacco abuse Code(s): Z72.0 - TOBACCO USE Status: Chronic Plan: Tobacco cessation resources (6) Noncompliance with medication regimen Code(s): Z91.14 - PATIENT'S OTHER NONCOMPLIANCE WITH MEDICATION REGIMEN Status : Chronic Plan: CM for assistance with follow up/med assist - Plan continue antibiotics, PT/OT, social economist, respiratory therapy, out of bed/ ambulate, DVT proph w/SCDs Stable currently COVID-19 ruled out Continue Zithromax/Rocephin Continue Solumedrol Duonebs q4h OOB/ambulate with PT AM lab: CBC, FT4
[2019-10-28] MEDS: cefTRIAXone\\ROCEPHIN 2 GM in Sodium Chloride 0.9% 100 ML IVPB SCH (15:27)
[2019-10-28] MEDS: metFORMIN 500 MG TAB PO SCH (16:49)
[2019-10-28] MEDS: glipiZIDE 5 MG TAB PO SCH (16:49)
[2019-10-28] MEDS: Azithromycin 500 MG in Sodium Chloride 0.9% 250 ML 250 ML IVPB SCH (18:02)
--- NOTE | 2019-10-28 18:12 | EKG ---
Test Reason : STAT Blood Pressure : / mmHG Vent. Rate : 089 BPM Atrial Rate : 089 BPM P-R Int : 166 ms QRS Dur : 152 ms QT Int : 434 ms P-R-T Axes : 064 169 -28 degrees QTc Int : 528 ms Normal sinus rhythm Possible Left atrial enlargement Right bundle branch block Septal infarct , age undetermined Inferior infarct , age undetermined Abnormal ECG When compared with ECG of 27-OCT-2019 14:54, (Unconfirmed) Septal infarct is now Present No significant change was found Confirmed by DR. Caridad APARICIO ([id number]) on 10/28/2019 6:12:39 PM Referred By: Confirmed By:DR. Caridad APARICIO
[2019-10-28] MEDS: Mometasone 200 MCG/Formoterol 5 MCG 120 PUFF INHALER INH SCH (18:51)
--- NOTE | 2019-10-28 20:11 | CON ---
DATE OF CONSULTATION: 10/28/2019 CONSULTING PHYSICIAN: Prosperist . REASON FOR CONSULTATION: COPD exacerbation. HISTORY OF PRESENT ILLNESS: The patient is a 59-year-old, who was seen at [facility] yesterday. She was short of breath. She was told to go the hospital. She decided to go home first and have a cheeseburger before coming to the hospital because she did not think the hospital would feed her. Upon arriving here, she was found to be hypoxic. She was placed on BiPAP. She was ruled out for COVID. Says she feels better this morning. She is about a [id number] smoker. She has been told in the past, she has COPD and sleep apnea. She has not worn CPAP in about 10 years because her machine broke. She is currently uninsured and unable to afford her medications or sleep study. PAST MEDICAL HISTORY: 1. Chronic obstructive pulmonary disease. 2. Obstructive sleep apnea. 3. Polycythemia vera. 4. Diabetes mellitus. 5. Hyperlipidemia. 6. Hypertension. PAST SURGICAL HISTORY: 1. Abdominoplasty. 2. Appendectomy. 3. Carpal tunnel release. 4. Cholecystectomy. 5. . SOCIAL HISTORY: See above. Occasionally drinks alcohol. She works from home, trying to obtain blood donors. FAMILY MEDICAL HISTORY: Remarkable for congestive heart failure and hypertension. MEDICATIONS: Prior to admission; 1. Lisinopril. 2. Metformin. 3. Zyrtec. 4. Furosemide. 5. Hydroxyzine. 6. Tessalon. 7. Prilosec. ALLERGIES: LATEX AND RUBBER. REVIEW OF SYSTEMS: Remarkable for shortness of breath, wheezing, orthopnea, PND, and snoring. Otherwise negative. PHYSICAL EXAMINATION: VITAL SIGNS: Temperature 98.7, pulse 82, blood pressure 152/84, and O2 saturation 97%. GENERAL: She is awake and alert, in no distress. HEENT: Notable for class 4 Mallampati airway. NECK: No adenopathy or JVD. LUNGS: With diffuse wheezing, best heard posteriorly. CARDIOVASCULAR: S1 and S2. Regular. ABDOMEN: Soft, obese, nontender, and nondistended. EXTREMITIES: No clubbing or cyanosis. She has brawny edema. LABORATORY DATA: Sodium 141, potassium 4.2, chloride 98, CO2 of 36, BUN 18, creatinine 0.9, and glucose 296. Hemoglobin A1c is 14. A pH of 7.27, pCO2 of 83, and pO2 of 95 on BiPAP. White blood cell count 13, hematocrit 55.6, and platelet count 169. COVID test is negative. The chest x-ray demonstrates cardiomegaly, perhaps a right lower lobe infiltrate difficult to tell. ASSESSMENT: 1. Obesity hypoventilation syndrome. 2. Chronic obstructive pulmonary disease exacerbation. 3. Underlying obstructive sleep apnea. 4. Question right lower lobe pneumonia. PLAN: 1. Agree with antibiotics. 2. Agree with steroids. 3. Add nebulization treatments. 4. Add Dulera. 5. Ideally, she would need a sleep study as an outpatient. Without being able to afford it, the best we can do is to see if she could come up with a funds to buy CPAP for [place] of about $500 through someone who does it locally. 6. Needs to quit smoking. 7. Needs to lose significant amount of weight. 8. Needs social assistance to be able to afford medications. It is clear that she is not taking any of them. Job ID: [id number]
[2019-10-28] MEDS: Insulin Regular 300 UNITS/3 ML VIAL SC PRN (20:16)
[2019-10-28] MEDS: Acetaminophen 325 MG TAB PO PRN (20:16)
[2019-10-28] MEDS: Gabapentin 300 MG CAP PO SCH (20:27)
[2019-10-29 04:50] LABS: Band 2 % (5-11); Hemoglobin 17.6 g/dL (12.0-16.0); Lymphocytes 13 % (21-51); MDiff Complete? YES; Macrocytosis SLIGHT = 6-15 cells (100X) (0-5/hpf); Mean Corpuscular HGB CONC 31.9 g/dL (32.0-36.0); Mean Corpuscular Hemoglobin 33.9 pg (27.0-31.0); Mean Platelet Volume 8.5 fL (7.4-10.4); Monocytes 9 % (0-10); Neutrophil 75 % (42-75); Platelet Count 167 thou/uL (130-400); Platelet Morphology Comment Appears Adequate; RBC Distribution Width 13.7 % (11.5-14.5); Reactive Lymphocytes 1 % (0-10); White Blood Cell (WBC) Count 15.5 thou/uL (4.8-10.8)
[2019-10-29] MEDS: Furosemide 40 MG/4 ML VIAL SLOW IVP SCH (06:35)
[2019-10-29] MEDS: Nicotine 21 MG PATCH TD SCH (08:11)
[2019-10-29] MEDS: Lisinopril 20 MG TAB PO SCH (08:15)
[2019-10-29] MEDS: methylPREDNISolone Sod Succ 40 MG VIAL IVP SCH (08:16)
[2019-10-29] MEDS: metFORMIN 500 MG TAB PO SCH ×2 (08:16→16:49)
[2019-10-29] MEDS: Enoxaparin Sodium 40 MG/0.4 ML SYRINGE SC SCH (08:16)
[2019-10-29] MEDS: Aspirin 325 mg Enteric Coated Tablet PO SCH (08:16)
[2019-10-29] MEDS: glipiZIDE 5 MG TAB PO SCH ×2 (08:16→16:52)
[2019-10-29] MEDS: Gabapentin 300 MG CAP PO SCH ×2 (08:16→19:38)
[2019-10-29] MEDS: Mometasone 200 MCG/Formoterol 5 MCG 120 PUFF INHALER INH SCH ×2 (08:21→19:18)
[2019-10-29] MEDS: Acetaminophen 325 MG TAB PO PRN (08:34)
[2019-10-29] MEDS: Insulin Regular 300 UNITS/3 ML VIAL SC PRN ×2 (12:11→16:52)
--- NOTE | 2019-10-29 12:59 | PDOC.HOSPP ---
- Subjective Encounter Date: 10/29/19 Encounter Time: 12:50 Subjective: f/u for COPD exacerbation and NEGRITA on nocturnal BiPAP. States feeling better overall. Receiving O2 @ 2-3L/min NC routinely. - Objective Vital Signs & Weight: Vital Signs (12 hours) Temp Pulse Resp BP Pulse Ox 10/29/19 11:40 83 20 100 10/29/19 11:12 97.3 F L 10/29/19 08:29 95 10/29/19 08:27 78 20 96 10/29/19 08:21 84 24 H 95 10/29/19 08:15 122/63 10/29/19 08:00 90 L 10/29/19 03:43 98.3 F 10/29/19 02:45 78 20 100 Weight Weight 281 lb 8 oz Most Recent Monitor Data Heart Rate from ECG 81 NIBP 122/63 NIBP BP-Mean 82 Respiration from ECG 20 SpO2 100 I&O: 10/28/19 10/29/19 10/30/19 06:59 06:59 06:59 Intake Total 120 Output Total 200 Balance -80 Result Diagrams: 10/29/19 03:50 10/28/19 03:39 Additional Labs: Accuchecks 10/29/19 10/29/19 10/28/19 11:07 05:40 18:47 POC Glucose 216 H 128 H 226 H Microbiology 10/27/19 16:31 Urine voided Urine Culture - Final 10/27/19 16:31 Urine voided Urine Culture - Preliminary NO GROWTH AT 12 HOURS 10/27/19 15:00 Venous blood - Right Hand Blood Culture - Preliminary Specimen has been received and culture in progress. No Growth to date. 10/27/19 14:40 Venous blood - Right Hand Blood Culture - Preliminary Specimen has been received and culture in progress. No Growth to date. Laboratory Tests 05/18/17 10/27/19 10/27/19 18:20 14:40 14:43 WBC 12.0 H Hgb Neutrophils % 73.3 Neutrophils % (Manual) Hemoglobin A1c B-Natriuretic Peptide 13.8 Troponin I 0.071 H Free T4 TSH 3rd Generation COVID-19 PCR 10/27/19 10/27/19 10/27/19 14:43 18:13 19:40 WBC Hgb Neutrophils % Neutrophils % (Manual) Hemoglobin A1c B-Natriuretic Peptide 255.5 H Troponin I 0.066 H Free T4 TSH 3rd Generation COVID-19 PCR Not Detected 10/27/19 10/28/19 10/28/19 21:03 03:39 03:39 WBC 13.3 H Hgb 18.0 H Neutrophils % 90.0 H Neutrophils % (Manual) Hemoglobin A1c Greater than 14.0 H B-Natriuretic Peptide Troponin I 0.060 H Free T4 TSH 3rd Generation COVID-19 PCR 10/28/19 10/29/19 10/29/19 03:40 03:50 03:50 WBC Hgb Neutrophils % Neutrophils % (Manual) 75 Hemoglobin A1c B-Natriuretic Peptide Troponin I Free T4 0.69 L TSH 3rd Generation 0.3485 L COVID-19 PCR EKG Reviewed by me: Yes (Tele - SR) Hospitalist ROS - Medication Medications: Active Medications Generic Name Dose Route Start Last Admin Trade Name Freq PRN Reason Stop Dose Admin Acetaminophen 650 mg 10/27/19 18:30 10/29/19 08:34 Tylenol PO 650 mg Q4H PRN Administration Headache/Fever/Mild Pain (1-3) Albuterol/Ipratropium 3 ml 10/28/19 14:30 10/29/19 11:40 Duoneb NEB 3 ml O2SH-EY JARET Administration Aspirin 325 mg 10/28/19 09:00 10/29/19 08:16 Ecotrin PO 325 mg DAILY JARET Administration Enoxaparin Sodium 40 mg 10/28/19 09:00 10/29/19 08:16 Lovenox SC 40 mg 0900 JARET Administration Furosemide 40 mg 10/28/19 06:00 10/29/19 06:35 Lasix SLOW IVP 40 mg 0600,1400 JARET Administration Gabapentin 300 mg 10/28/19 21:00 10/29/19 08:16 Neurontin PO 300 mg BID JARET Administration Glipizide 5 mg 10/28/19 16:30 10/29/19 08:16 Glucotrol PO 5 mg BID-AC JARET Administration Azithromycin 500 mg/ Sodium 250 mls @ 250 mls/hr 10/28/19 18:00 10/28/19 18: 02 Chloride IVPB 250 mls Q24HR JARET Administration Ceftriaxone Sodium 2 gm/ 100 mls @ 200 mls/hr 10/28/19 16:00 10/28/19 15:27 Sodium Chloride IVPB 100 mls Q24HR JARET Administration Insulin Human Regular 0 units 10/27/19 18:59 10/29/19 12:11 Humulin R SC 3 unit .MILD SLIDING SCALE PRN Administration Mild Correctional Scale Lisinopril 20 mg 10/29/19 09:00 10/29/19 08:15 Zestril PO 20 mg DAILY JARET Administration Metformin HCl 500 mg 10/28/19 17:00 10/29/19 08:16 Glucophage PO 500 mg BID-WM JARET Administration Methylprednisolone Sodium Succinate 40 mg 10/28/19 09:00 10/29/19 08:16 Solu-Medrol IVP 40 mg DAILY JARET Administration Mometasone Furoate/Formoterol Fumar 2 puff 10/28/19 18:30 10/29/19 08:21 Dulera 200 Mcg/5 Mcg Inhaler INH 2 puff BID-RT JARET Administration Nicotine 21 mg 10/28/19 09:00 10/29/19 08:11 Nicoderm Patch TD Not Given DAILY JARET Pantoprazole Sodium 40 mg 10/28/19 09:00 10/29/19 08:15 Protonix PO 40 mg DAILY JARET Administration - Exam General Appearance: NAD, awake alert General - other findings: BiPAP mask in place Eye: PERRL, anicteric sclera ENT: normocephalic atraumatic, no oropharyngeal lesions Neck: supple, symmetric, no JVD, no thyromegaly, no lymphadenopathy Heart: RRR, no murmur, no gallops, no rubs, normal peripheral pulses Heart - other findings: S1, S2 Respiratory - other findings: diminished bilat, exp wheezes Gastrointestinal: soft, non-tender, non-distended, normal bowel sounds, no palpable masses Gastrointestinal - other findings: obese Extremities: no cyanosis, no clubbing, 1+ LE edema Skin: normal turgor Neurological: cranial nerve grossly intact, no new deficit Musculoskeletal: normal tone, normal strength, generalized weakness Psychiatric: normal affect, A&O x 3 Hosp A/P (1) Acute respiratory failure with hypoxia Code(s): J96.01 - ACUTE RESPIRATORY FAILURE WITH HYPOXIA Status: Acute Plan: Continue supportive mgmt, see below (2) COPD exacerbation Code(s): J44.1 - CHRONIC OBSTRUCTIVE PULMONARY DISEASE W (ACUTE) EXACERBATION Status: Acute Plan: Continue Zithromax/Rocephin another 24h, Solumedrol/O2/Duonebs/Dulera (3) DM type 2 (diabetes mellitus, type 2) Status: Chronic Qualifiers: Diabetes mellitus exterminator termite insulin use: with nursing home use Plan: Uncontrolled, continue Glipizide/Metformin, likely will need nursing home insulin once establishing with PCP, ADA, ISS (4) HTN (hypertension) Code(s): I10 - ESSENTIAL (PRIMARY) HYPERTENSION Status: Chronic Qualifiers: Hypertension type: essential hypertension Qualified Code(s): I10 - Essential (primary) hypertension (5) Tobacco abuse Code(s): Z72.0 - TOBACCO USE Status: Chronic (6) Noncompliance with medication regimen Code(s): Z91.14 - PATIENT'S OTHER NONCOMPLIANCE WITH MEDICATION REGIMEN Status : Chronic - Plan continue antibiotics, PT/OT, psychiatric social worker, respiratory therapy, out of bed/ ambulate, DVT proph w/SCDs Stable currently COVID-19 ruled out Continue Zithromax/Rocephin another 24h then de-escalate Continue Solumedrol another 24h Change Lasix 40mg po daily Duonebs q4h OOB/ambulate with PT AM lab: BMP, CBC
[2019-10-29] MEDS ORDERED: guaiFENesin ER 600 MG TAB PO SCH (13:15)
[2019-10-29] MEDS: cefTRIAXone\\ROCEPHIN 2 GM in Sodium Chloride 0.9% 100 ML IVPB SCH (14:23)
--- NOTE | 2019-10-29 14:46 | PRG ---
DATE OF SERVICE: 10/29/2019 SUBJECTIVE: She is up in a chair. She is in better spirits. She is concerned about the need for home oxygen and CPAP, mainly because she is uninsured and cannot afford either. OBJECTIVE: VITAL SIGNS: Temperature 97.3, pulse 85, O2 saturation 100% on nasal cannula. HEENT: Unremarkable. NECK: No JVD. LUNGS: Distant but clear breath sounds. CARDIAC: S1, S2. Regular. ABDOMEN: Soft. EXTREMITIES: No edema. LABORATORY DATA: White count 15, hematocrit 55, platelet count 167. ASSESSMENT: 1. Chronic obstructive pulmonary disease with exacerbation. 2. Likely underlying obesity hypoventilation syndrome/NEGRITA. 3. Polycythemia. 4. Question right lower lobe pneumonia. PLAN: 1. Increase activity as tolerated and wean oxygen as tolerated. 2. Continue antibiotics, steroids and nebulization treatments. 3. Needs to be evaluated by Case Management tomorrow for evaluation of whether not she can get a sleep study, home CPAP, and home oxygen. Job ID: [id number]
[2019-10-29] MEDS: Azithromycin 500 MG in Sodium Chloride 0.9% 250 ML 250 ML IVPB SCH (16:49)
[2019-10-29] MEDS: guaiFENesin ER 600 MG TAB PO SCH (19:38)
[2019-10-30 05:24] LABS: Anion Gap 15 mmol/L (10-20); BUN (Urea Nitrogen) 23 mg/dL (9.8-20.1); Calc. Creatinine Clearance 153 mL/min (70-130); Calcium 8.8 mg/dL (7.8-10.44); Carbon Dioxide 32 mmol/L (22-29); Chloride 97 mmol/L (98-107); Estimated GFR-MDRD 74; Glucose 131 mg/dL (70-105); Potassium 3.9 mmol/L (3.5-5.1); Sodium 140 mmol/L (136-145)
[2019-10-30 05:53] LABS: Hemoglobin 17.1 g/dL (12.0-16.0); Mean Corpuscular HGB CONC 32.3 g/dL (32.0-36.0); Mean Corpuscular Hemoglobin 33.9 pg (27.0-31.0); Mean Platelet Volume 8.6 fL (7.4-10.4); Platelet Count 157 thou/uL (130-400); RBC Distribution Width 13.7 % (11.5-14.5); Red Blood Cell (RBC) Count 5.05 mill/uL (4.20-5.40); White Blood Cell (WBC) Count 13.7 thou/uL (4.8-10.8)
[2019-10-30] MEDS: Aspirin 325 mg Enteric Coated Tablet PO SCH (09:05)
[2019-10-30] MEDS: Furosemide 40 MG TAB PO SCH (09:05)
[2019-10-30] MEDS: glipiZIDE 5 MG TAB PO SCH ×2 (09:05→16:35)
[2019-10-30] MEDS: Lisinopril 20 MG TAB PO SCH (09:05)
[2019-10-30] MEDS: guaiFENesin ER 600 MG TAB PO SCH ×2 (09:05→20:27)
[2019-10-30] MEDS: metFORMIN 500 MG TAB PO SCH ×2 (09:05→16:35)
[2019-10-30] MEDS: Nicotine 21 MG PATCH TD SCH (09:06)
[2019-10-30] MEDS: Gabapentin 300 MG CAP PO SCH ×2 (09:06→20:27)
[2019-10-30] MEDS: methylPREDNISolone Sod Succ 40 MG VIAL IVP SCH (09:06)
[2019-10-30] MEDS: Acetaminophen 325 MG TAB PO PRN (09:07)
[2019-10-30] MEDS: Enoxaparin Sodium 40 MG/0.4 ML SYRINGE SC SCH (09:16)
[2019-10-30 09:57] LABS: Eosinophils 1 % (0-10); Lymphocytes 14 % (21-51); MDiff Complete? YES; Macrocytosis SLIGHT = 6-15 cells (100X) (0-5/hpf); Monocytes 8 % (0-10); Neutrophil 77 % (42-75)
[2019-10-30] MEDS: Mometasone 200 MCG/Formoterol 5 MCG 120 PUFF INHALER INH SCH ×2 (11:20→19:00)
--- NOTE | 2019-10-30 12:39 | PRG ---
DATE OF SERVICE: 10/30/2019 SUBJECTIVE: The patient is doing fine. She wants to go home. OBJECTIVE: VITAL SIGNS: On exam, her temperature is 98.1, pulse 79, blood pressure 137/68, O2 saturation 97%. HEENT: Unremarkable. NECK: No adenopathy or JVD. CHEST: Faint wheezing. CARDIAC: S1 and S2, regular. ABDOMEN: Soft. EXTREMITIES: No edema. LABORATORY DATA: White blood cell count 13.7, hematocrit 53, platelet count 157. Sodium 140, potassium 3.9, chloride 97, CO2 of 32, BUN 23, creatinine 0.7, glucose 131. ASSESSMENT: 1. Chronic obstructive pulmonary disease with exacerbation. 2. Probably underlying obstructive sleep apnea/obesity hypoventilation syndrome. 3. Polycythemia. 4. Questionable right lower lobe pneumonia. PLAN: 1. The patient probably needs an outpatient sleep study. This would have to be done and arranged by the patient after she leaves the hospital. She is un-funded and so this will be very difficult. 2. She probably will need home oxygen also. 3. She can be switched to oral antibiotics. She can be switched to oral steroids. She can be transferred to the medical floor. Job ID: [id number]
[2019-10-30] MEDS: cefTRIAXone\\ROCEPHIN 2 GM in Sodium Chloride 0.9% 100 ML IVPB SCH (16:35)
--- NOTE | 2019-10-30 17:58 | PDOC.HOSPP ---
- Subjective Encounter Date: 10/30/19 Encounter Time: 17:50 Subjective: f/u for COPD exacerbation on nocturnal BiPAP due to NEGRITA. Overall improved. - Objective Vital Signs & Weight: Vital Signs (12 hours) Temp Pulse Resp BP Pulse Ox 10/30/19 15:48 99.0 F 10/30/19 15:40 76 27 H 100 10/30/19 11:17 88 20 96 10/30/19 11:09 98.1 F 10/30/19 09:05 158/72 H 10/30/19 08:00 100 10/30/19 07:51 74 20 100 10/30/19 07:50 74 18 100 10/30/19 07:30 97.4 F L Weight Weight 281 lb 8 oz Most Recent Monitor Data Heart Rate from ECG 77 NIBP 140/73 NIBP BP-Mean 95 Respiration from ECG 19 SpO2 97 I&O: 10/29/19 10/30/19 10/31/19 06:59 06:59 06:59 Intake Total 1450 1680 Output Total 850 2950 Balance 600 -1270 Result Diagrams: 10/30/19 04:21 10/30/19 04:21 Additional Labs: Accuchecks 10/30/19 10/30/19 10/29/19 11:01 06:00 19:54 POC Glucose 260 H 132 H 140 H Microbiology 10/27/19 16:31 Urine voided Urine Culture - Final 10/27/19 16:31 Urine voided Urine Culture - Preliminary NO GROWTH AT 12 HOURS 10/27/19 15:00 Venous blood - Right Hand Blood Culture - Preliminary Specimen has been received and culture in progress. No Growth to date. 10/27/19 14:40 Venous blood - Right Hand Blood Culture - Preliminary Specimen has been received and culture in progress. No Growth to date. Laboratory Tests 05/18/17 10/27/19 10/27/19 18:20 14:40 14:43 WBC 12.0 H Hgb Neutrophils % 73.3 Neutrophils % (Manual) Hemoglobin A1c B-Natriuretic Peptide 13.8 Troponin I 0.071 H Free T4 TSH 3rd Generation COVID-19 PCR 10/27/19 10/27/19 10/27/19 14:43 18:13 19:40 WBC Hgb Neutrophils % Neutrophils % (Manual) Hemoglobin A1c B-Natriuretic Peptide 255.5 H Troponin I 0.066 H Free T4 TSH 3rd Generation COVID-19 PCR Not Detected 10/27/19 10/28/19 10/28/19 21:03 03:39 03:39 WBC 13.3 H Hgb 18.0 H Neutrophils % 90.0 H Neutrophils % (Manual) Hemoglobin A1c Greater than 14.0 H B-Natriuretic Peptide Troponin I 0.060 H Free T4 TSH 3rd Generation COVID-19 PCR 10/28/19 10/29/19 10/29/19 03:40 03:50 03:50 WBC Hgb Neutrophils % Neutrophils % (Manual) 75 Hemoglobin A1c B-Natriuretic Peptide Troponin I Free T4 0.69 L TSH 3rd Generation 0.3485 L COVID-19 PCR Hospitalist ROS - Medication Medications: Active Medications Generic Name Dose Route Start Last Admin Trade Name Freq PRN Reason Stop Dose Admin Acetaminophen 650 mg 10/27/19 18:30 10/30/19 09:07 Tylenol PO 650 mg Q4H PRN Administration Headache/Fever/Mild Pain (1-3) Albuterol/Ipratropium 3 ml 10/28/19 14:30 10/30/19 15:40 Duoneb NEB 3 ml [id number] JARET Administration Aspirin 325 mg 10/28/19 09:00 10/30/19 09:05 Ecotrin PO 325 mg DAILY JARET Administration Enoxaparin Sodium 40 mg 10/28/19 09:00 10/30/19 09:16 Lovenox SC 40 mg 0900 JARET Administration Furosemide 40 mg 10/30/19 07:30 10/30/19 09:05 Lasix PO 40 mg DAILY-AC JARET Administration Gabapentin 300 mg 10/28/19 21:00 10/30/19 09:06 Neurontin PO 300 mg BID JARET Administration Glipizide 5 mg 10/28/19 16:30 10/30/19 16:35 Glucotrol PO 5 mg BID-AC JARET Administration Guaifenesin 600 mg 10/29/19 21:00 10/30/19 09:05 Mucinex PO 600 mg Q12HR JARET Administration Azithromycin 500 mg/ Sodium 250 mls @ 250 mls/hr 10/28/19 18:00 10/29/19 16: 49 Chloride IVPB 10/30/19 23:59 250 mls Q24HR JARET Administration Ceftriaxone Sodium 2 gm/ 100 mls @ 200 mls/hr 10/28/19 16:00 10/30/19 16:35 Sodium Chloride IVPB 100 mls Q24HR JARET Administration Insulin Human Regular 0 units 10/27/19 18:59 10/29/19 16:52 Humulin R SC 3 unit .MILD SLIDING SCALE PRN Administration Mild Correctional Scale Lisinopril 20 mg 10/29/19 09:00 10/30/19 09:05 Zestril PO 20 mg DAILY JARET Administration Metformin HCl 500 mg 10/28/19 17:00 10/30/19 16:35 Glucophage PO 500 mg BID-WM JARET Administration Methylprednisolone Sodium Succinate 40 mg 10/28/19 09:00 10/30/19 09:06 Solu-Medrol IVP 40 mg DAILY JARET Administration Mometasone Furoate/Formoterol Fumar 2 puff 10/28/19 18:30 10/30/19 11:20 Dulera 200 Mcg/5 Mcg Inhaler INH 2 puff BID-RT JARET Administration Nicotine 21 mg 10/28/19 09:00 10/30/19 09:06 Nicoderm Patch TD Not Given DAILY JARET Pantoprazole Sodium 40 mg 10/28/19 09:00 10/30/19 09:05 Protonix PO 40 mg DAILY JARET Administration Temazepam 15 mg 10/27/19 18:53 10/29/19 21:39 Restoril PO 15 mg HSPRN PRN Administration Insomnia - Exam General Appearance: NAD, awake alert Eye: PERRL, anicteric sclera ENT: normocephalic atraumatic, no oropharyngeal lesions Neck: supple, symmetric, no JVD, no thyromegaly Heart: RRR, no murmur, no gallops, no rubs, normal peripheral pulses Heart - other findings: S1, S2 Respiratory: tachypneic Respiratory - other findings: diminished bilat in bases, occ exp wheeze Gastrointestinal: soft, non-tender, non-distended, normal bowel sounds, no palpable masses Extremities: no cyanosis, no clubbing, no edema Skin: normal turgor, no lesions Neurological: cranial nerve grossly intact, no new deficit Musculoskeletal: normal tone, generalized weakness Psychiatric: normal affect, A&O x 3 Hosp A/P (1) Acute respiratory failure with hypoxia Code(s): J96.01 - ACUTE RESPIRATORY FAILURE WITH HYPOXIA Status: Acute Plan: Acute and chronic hypoxic resp failure, will need home O2 setup (2) COPD exacerbation Code(s): J44.1 - CHRONIC OBSTRUCTIVE PULMONARY DISEASE W (ACUTE) EXACERBATION Status: Acute Plan: Continue Zithromax/Rocephin another 24h then de-escalate, Duonebs (3) DM type 2 (diabetes mellitus, type 2) Status: Chronic Qualifiers: Diabetes mellitus terminal clerk insulin use: with nursing home use (4) HTN (hypertension) Code(s): I10 - ESSENTIAL (PRIMARY) HYPERTENSION Status: Chronic Qualifiers: Hypertension type: essential hypertension Qualified Code(s): I10 - Essential (primary) hypertension (5) Tobacco abuse Code(s): Z72.0 - TOBACCO USE Status: Chronic (6) Noncompliance with medication regimen Code(s): Z91.14 - PATIENT'S OTHER NONCOMPLIANCE WITH MEDICATION REGIMEN Status : Chronic - Plan continue antibiotics, PT/OT, social service agency director, respiratory therapy, out of bed/ ambulate, DVT proph w/SCDs Stable currently COVID-19 ruled out Continue Zithromax/Rocephin another 24h then de-escalate Continue Solumedrol another 24h Change Lasix 40mg po daily Duonebs q4h OOB/ambulate with PT 2D echo pending Transfer to medical floor
[2019-10-30] MEDS: Azithromycin 500 MG in Sodium Chloride 0.9% 250 ML 250 ML IVPB SCH (19:28)
[2019-10-31 07:16] VITALS: TEMP 97.8
[2019-10-31] MEDS: Mometasone 200 MCG/Formoterol 5 MCG 120 PUFF INHALER INH SCH (07:42)
[2019-10-31] MEDS: Nicotine 21 MG PATCH TD SCH (07:49)
[2019-10-31] MEDS: Aspirin 325 mg Enteric Coated Tablet PO SCH (07:49)
[2019-10-31] MEDS: metFORMIN 500 MG TAB PO SCH (07:49)
[2019-10-31] MEDS: glipiZIDE 5 MG TAB PO SCH (07:49)
[2019-10-31] MEDS: Enoxaparin Sodium 40 MG/0.4 ML SYRINGE SC SCH (07:49)
[2019-10-31] MEDS: Gabapentin 300 MG CAP PO SCH (07:49)
[2019-10-31] MEDS: Furosemide 40 MG TAB PO SCH (07:49)
[2019-10-31] MEDS: guaiFENesin ER 600 MG TAB PO SCH (07:50)
[2019-10-31] MEDS: Lisinopril 20 MG TAB PO SCH (07:50)
[2019-10-31] MEDS: methylPREDNISolone Sod Succ 40 MG VIAL IVP SCH (07:50)
[2019-10-31 07:57] VITALS: BP 158/72
[2019-10-31] MEDS ORDERED: Azithromycin 250 MG TAB PO SCH (09:00)
[2019-10-31] MEDS: Insulin Regular 300 UNITS/3 ML VIAL SC PRN (12:59)
--- NOTE | 2019-11-01 01:43 | DIS ---
DATE OF ADMISSION: 10/27/2019 DATE OF DISCHARGE: 10/31/2019 DISCHARGE DIAGNOSES: 1. Acute on chronic hypoxic respiratory failure secondary to #2 with oxygen supplementation at 2 L/minute by nasal cannula continuously. 2. Acute chronic obstructive pulmonary disease exacerbation, improved. 3. Diabetes mellitus type 2. 4. Hypertension, chronic. 5. Tobacco abuse. 6. Obstructive sleep apnea. CONSULTATIONS: Dr. Sandhu with Pulmonology Critical Care Service. PERTINENT LABORATORY AND X-RAY FINDINGS: CO2 level ranged between 32 to 36. Hemoglobin A1c greater than 14. Troponin I ranged between 0.060 to 0.071. BNP 256. TSH 0.39, free T4 0.69. Total cholesterol 179, triglycerides 107, HDL 45, LDL 113. CBC showed a white blood cell count ranged between 12.0 to 15.5, hemoglobin ranged between 17.1 to 19.0. COVID-19 PCR not detected, 10/27/2019. Blood cultures x2 dated 10/27/2019 showed no growth at 48 hours. Urine culture dated 10/27/2019 showed less than 10,000 colonies of mixed skin and enteric catrina. Portable chest x-ray dated 10/27/2019 showed bibasilar atelectasis versus infiltrates. 2D transthoracic echocardiogram dated 10/29/2019, showed ejection fraction of 60% to 65%. HOSPITAL COURSE: The patient was initially admitted to the intermediate care unit after presenting with increased shortness of breath, COPD exacerbation and requirements for BiPAP noninvasive mechanical ventilation. The patient with chronic tobacco abuse, presenting with COPD exacerbation, initiated on IV Solu-Medrol in addition to broad-spectrum IV antibiotic therapy with Zithromax and Rocephin. The patient was initially managed with BiPAP noninvasive mechanical ventilation as well as given bronchodilator therapy. The patient was ruled out for COVID-19 by PCR analysis. The patient did initially receive IV Lasix with 2D transthoracic echocardiogram performed showing a preserved ejection fraction of 60% to 65%. The patient's presentation consistent with volume overload in the context of COPD exacerbation as well as fluid retention due to poorly-controlled diabetes and hypertension. The patient was evaluated by the Pulmonology Service with recommendations for outpatient sleep study and to determine settings for a BiPAP/CPAP noninvasive mechanical ventilation after discharge. The patient's social situation was complicated due to lack of funding. However, the patient did clinically stabilize with medical management. Overall, the patient has remained clinically stable during the hospital course transitioning to oxygen via nasal cannula at 2 L/minute by nasal cannula. I have examined the patient at the time of discharge and discussed followup instructions. The patient verbalizes understanding and agreement, ready for discharge on 10/31/2019. DISCHARGE MEDICATIONS: 1. Albuterol sulfate nebulized solution 0.63 mg nebulized b.i.d. 2. Albuterol sulfate HFA 2 puffs inhaled q.6 hours p.r.n. 3. Enteric-coated aspirin 325 mg p.o. daily. 4. Zyrtec 10 mg p.o. daily. 5. Amoxicillin 500 mg p.o. b.i.d. x7 days. 6. Lasix 40 mg p.o. daily. 7. Gabapentin 300 mg p.o. b.i.d. 8. Glipizide 5 mg p.o. b.i.d. 9. Lisinopril 20 mg p.o. daily. 10. Metformin 500 mg p.o. b.i.d. 11. Dulera 2 puffs inhaled b.i.d. 12. Nortriptyline 150 mg p.o. at bedtime. 13. Prednisone 20 mg take 2 tablets p.o. daily x3 days, followed by 1 tablet p.o. daily x3 days, followed by half a tablet p.o. daily x3 days. FOLLOWUP: The patient to establish with [facility] in the [place], [place] area after discharge. The patient may follow up with Dr. Jacques Sandhu with Pulmonology Service to pursue outpatient sleep study and potential BiPAP/CPAP noninvasive mechanical ventilation device. ACTIVITY: Ad-sathish. DIET: ADA and heart healthy. CODE STATUS: Full. DISPOSITION: Home on 10/31/2019. TIME SPENT: Total time preparing and coordinating discharge, 38 minutes. Job ID: [id number]
--- NOTE | 2019-11-02 09:16 | PQF ---
Amy Chris CHARLES DO [id number] CLINICAL DOCUMENTATION CLARIFICATION FORM: POST DISCHARGE Addendum to original discharge summary date: ____ Late entry note date: __ DATE: 11/02/2019 ATTN:BASSAM GONZALEZ DO Please exercise your independent, professional judgment in responding to the clarification form. Clinical indicators are provided on the bottom of this form for your review Please check appropriate box(s): HEART FAILURE: A. TYPE: [ ] Systolic / HFrEF [ ] Diastolic / HFpEF [ ] Combined Systolic / Diastolic B. ACUITY [ ] Acute [ ] Acute on Chronic [ ] Chronic [ x ] Other diagnosis _COPD [ ] Unable to determine In addition, please specify: Present on Admission (POA): [ ] Yes [ x ] No [ ] Unable to determine For continuity of documentation, please document condition throughout progress notes and discharge summary. Thank You. CLINICAL INDICATORS - SIGNS / SYMPTOMS / LABS - CHF, Elevated troponin, hypoxia, SOB-ED record, 10/26, Antonio Thurston DO - Ejection fraction is visually estimated at 60-65%- JOHN, 10/28, Jeffry Iniguez MD - BNP: 255.5H- Laboratory report, 10/26, - Shortness of breath, anasarca - H&P, 10/26, Aakash CYR - Anasarca, we will get endocardiogram the last one in 2016 showed an EF of 60 % to 65% with some grade 1 diastolic dysfuction-H&P, 10/26, Aakash CYR RISKS: -History of Hypertension- H&P, 10/26, Aakash CYR -Type II diabetes- ED record, 10/26, Antonio Thurston DO TREATMENTS: - Furosemide.IV- MAR, 10/27 [employer] Win[employer] Viewer (This form is maintained as a part of the [facility] medical record) 2014 [facility] [facility] [employer]. All Rights Reserved Shaan THOM
--- NOTE | 2019-11-05 12:27 | EKG ---
Test Reason : Blood Pressure : / mmHG Vent. Rate : 090 BPM Atrial Rate : 090 BPM P-R Int : 156 ms QRS Dur : 142 ms QT Int : 422 ms P-R-T Axes : 061 165 -26 degrees QTc Int : 516 ms Normal sinus rhythm Possible Left atrial enlargement Right bundle branch block T wave abnormality, consider inferolateral ischemia Abnormal ECG Confirmed by BENNIE GONZALEZ DO ([id number]), acquisitions editor GISELLE MENJIVAR ([id number]) on 11/05/2019 12:26:32 PM Referred By: Confirmed By:BENNIE GONZALEZ DO
== END 2019-10-31 16:05 | disposition home or self-care (01) | DRG 189 ==
LOC: ERS 14:21 → 2SW 17:43 → IMCU/EMU 10-28 01:25 → T4-A 10-30 18:06
PROVIDERS: ADMIT Internal Medicine; ATTEND Internal Medicine
PROC: 8E0ZXY6 Isolation (ICD-10-PCS; 2019-10-27)
PROC: 5A09457 Assistance with Respiratory Ventilation, 24-96 Consecutive Hours, Continuous Positive Airway Pressure (ICD-10-PCS; principal; 2019-10-28)
DX: J96.21 Acute and chronic respiratory failure with hypoxia (principal); J44.1 Chronic obstructive pulmonary disease with (acute) exacerbation; E66.2 Morbid (severe) obesity with alveolar hypoventilation; Z68.41 Body mass index [BMI] 40.0-44.9, adult; E11.9 Type 2 diabetes mellitus without complications; Z20.828 Contact with and (suspected) exposure to other viral communicable diseases; E87.70 Fluid overload, unspecified; F41.9 Anxiety disorder, unspecified; F32.9 Major depressive disorder, single episode, unspecified; R79.89 Other specified abnormal findings of blood chemistry; I50.9 Heart failure, unspecified; E11.40 Type 2 diabetes mellitus with diabetic neuropathy, unspecified; D45 Polycythemia vera; E78.00 Pure hypercholesterolemia, unspecified; I11.0 Hypertensive heart disease with heart failure; E78.5 Hyperlipidemia, unspecified; M79.7 Fibromyalgia; Z90.49 Acquired absence of other specified parts of digestive tract; Z87.891 Personal history of nicotine dependence; Z79.4 Long term (current) use of insulin; Z91.14 Patient's other noncompliance with medication regimen
CPT/HCPCS: 36415; 36416; 71045; 80048; 80053; 80061; 81003; 81015; 82550; 82553; 82805; 83036; 83605; 83735; 83880; 84145; 84439; 84443; 84484; 85007; 85025; 85027; 86140; 87040; 87086; 87635; 93005; 93010; 93306; 94640; 94660; 96365; 96366; 96367; 96375; J0456; J0696; J1650; J1815; J1940; J2920; J2930; J3490; J7050; J7620; U0003